=== PATIENT | female | born 2000 | race Caucasian/White ===

== ENCOUNTER 2022-03-25 19:09 | Emergency (ER) | payer SELFPAY ==
[~2022-03-25] VITALS: Ht 165.1 cm; Wt 45.4 kg
[2022-03-25 20:01] VITALS: BP 121/77
--- NOTE | 2022-03-25 20:10 | NUR ---
PT TAKEN TO BED 8
--- NOTE | 2022-03-25 20:33 | NUR ---
Dr. Hare examining patient.
--- NOTE | 2022-03-25 20:33 | NUR ---
DR CHOI AT BEDSIDE
[2022-03-25] MEDS ORDERED: LIDO15SO PO (20:51)
[2022-03-25] MEDS ORDERED: AMOX1TAB8 PO (20:51)
[2022-03-25] MEDS ORDERED: BACI1PAC6 TP (20:52)
[2022-03-25 21:12] VITALS: BP 111/78
--- NOTE | 2022-03-25 21:12 | NUR ---
The patient's care was reviewed and supervised by Sabrina Mario RN.
--- NOTE | 2022-03-25 21:12 | NUR ---
Patient discharged with v/s stable. Written and verbal after care instructions given and explained. Patient alert, oriented and verbalized understanding of instructions. Ambulatory with steady gait. All questions addressed prior to discharge. ID band removed. Patient advised to follow up with PMD. Rx of Amox-Clav, Bacitracin and Lidocaine given. Patient educated on indication of medication including possible reaction and side effects. Opportunity to ask questions provided and answered.
== END 2022-03-25 21:12 | disposition home or self-care (01) ==
LOC: MED 19:09
DX: B00.2 Herpesviral gingivostomatitis and pharyngotonsillitis (principal)
CPT/HCPCS: 36415; 87529; 99283

== ENCOUNTER 2022-12-06 21:14 | Emergency (ER) | payer MEDICAID ==
[~2022-12-06] VITALS: Ht 165.1 cm; Wt 48.1 kg
[~2022-12-06 21:14] MED LIST: AMOX1TAB8 PO; BACI-418 TP; LIDO15SO4 PO
[2022-12-06 21:30] VITALS: BP 138/84; PULSE 97; RESP 20; TEMP 98; O2SAT 98
--- NOTE | 2022-12-06 21:50 | NUR ---
PT TAKEN TO BED 11
[2022-12-06 21:57] VITALS: O2SAT 98
--- NOTE | 2022-12-06 21:58 | NUR ---
pt refusing to file animal report.
[2022-12-06] MEDS ORDERED: LIDOCAINE 1% 500 MG/ 50 ML VIAL INJ ONE (22:00)
[2022-12-06] MEDS ORDERED: LIDOCAINE 2% 1000 MG/50 ML VIAL INJ ONE (22:00)
[2022-12-06] MEDS ORDERED: AMOXIL/CLAVULANATE 875/125 MG 1 TAB PO ONE (22:05)
[2022-12-06] MEDS ORDERED: oxyCODONE/APAP 5/325 MG 1 TAB TAB PO ONE (22:05)
[2022-12-06] MEDS ORDERED: AMOX1TAB8 PO (23:07)
[2022-12-06] MEDS ORDERED: BACI-418 TP (23:07)
--- NOTE | 2022-12-06 23:23 | NUR ---
Patient discharged. Written and verbal after care instructions given and explained. Patient alert, oriented and verbalized understanding of instructions. Ambulatory with steady gait. All questions addressed prior to discharge. ID band removed. Patient advised to follow up with PMD. Rx of Amox-Clav 875-125mg and Bacitracin oint given. Patient educated on indication of medication including possible reaction and side effects. Opportunity to ask questions provided and answered.
== END 2022-12-06 23:23 | disposition home or self-care (01) ==
LOC: MED 21:14
DX: S01.511A Laceration without foreign body of lip, initial encounter (principal); Z79.899 Other long term (current) drug therapy; W54.0XXA Bitten by dog, initial encounter; Y93.89 Activity, other specified; Y92.89 Other specified places as the place of occurrence of the external cause; Y99.8 Other external cause status
CPT/HCPCS: 12011; 90471; 90715; 99283; J2001